=== PATIENT | female | born 1960 | race Caucasian/White ===

== ENCOUNTER 2018-01-22 00:33 | Emergency (ER) | payer MEDICAID ==
[~2018-01-22] VITALS: Ht 154.9 cm; Wt 65.5 kg
[2018-01-22 00:36] VITALS: BP 136/91
[2018-01-22] MEDS ORDERED: HYDROcodone/APAP 5/325 TABLET ONE (01:28)
[2018-01-22] MEDS ORDERED: PENICILLIN VK 500MG TABLET ONE (01:28)
[2018-01-22] MEDS ORDERED: HYDROcodone/APAP 5/325 TABLET PO ONE (01:30)
[2018-01-22] MEDS ORDERED: PENICILLIN VK 500MG TABLET PO ONE (01:30)
== END 2018-01-22 01:37 | disposition home or self-care (01) ==
LOC: ED 01:30
DX: K04.6 Periapical abscess with sinus (principal); K02.9 Dental caries, unspecified; E03.9 Hypothyroidism, unspecified; F17.200 Nicotine dependence, unspecified, uncomplicated; Z72.89 Other problems related to lifestyle; Z90.710 Acquired absence of both cervix and uterus
CPT/HCPCS: 99283